=== PATIENT | female | born 1955 | race Caucasian/White ===

== ENCOUNTER 2020-12-14 10:16 | Emergency (ER) | payer BC, OTHER ==
[~2020-12-14] VITALS: Ht 172.7 cm; Wt 111.0 kg
[2020-12-14 10:20] VITALS: BP 141/93
[2020-12-14] MEDS ORDERED: KETOROLAC 30 MG/ML VIAL IM STA (10:25)
--- NOTE | 2020-12-14 10:25 | ED Lower Extremity ---
General Chief Complaint: Lower Extremity Stated Complaint: LT HIP/KNEE PAIN History of Present Illness Date Seen by Provider: December 14, 2020 Time Seen by Provider: 10:22 Initial Comments 65-year-old female presents with left knee pain. Patient reports that she has had "problems with her knee in the past. She was out walking laps today when she felt a pop in her left knee. That she has pain in the joint line of the left lateral aspect of the knee. She is able to bear weight but it hurts. Patient reports that since that happened she has had a little bit of pain now in her hip. Allergies and Home Medications Allergies Coded Allergies: No Known Drug Allergies (Unverified , 12/14/20) Patient Home Medication List Home Medication List Reviewed: Yes Review of Systems Constitutional: No chills, No fever EENTM: no symptoms reported Respiratory: no symptoms reported Cardiovascular: no symptoms reported Gastrointestinal: no symptoms reported Genitourinary: no symptoms reported Musculoskeletal: see HPI Skin: no symptoms reported Psychiatric/Neurological: No Symptoms Reported Past Fmuvyhs-Wtyuid-Gnhidk Hx Past Med/Social Hx: Reviewed Nursing Past Med/Soc Hx Physical Exam Vital Signs Capillary Refill : Height, Weight, BMI Height: '" Weight: lbs. oz. kg; BMI Method: General Appearance: no apparent distress HEENT: TMs normal Neck: full range of motion, supple Cardiovascular: normal peripheral pulses, regular rate, rhythm Respiratory: lungs clear, normal breath sounds Gastrointestinal: non tender, soft Hips: bilateral hip normal range of motion, bilateral hip no evidence of injury Legs: bilateral leg non-tender Knees: bilateral knee normal range of motion; left knee other (Mild left lateral joint line tenderness, negative anterior posterior drawer test, no noticeable ligament laxity.) Ankles: bilateral ankle non-tender Feet: bilateral foot non-tender Progress/Results/Core Measures Results/Orders My Orders Orders - KATE REYES DO Knee 3 View Left (12/14/20 10:25) Ketorolac Injection (Toradol Injection) (12/14/20 10:25) Progress Progress Note : Progress Note Patient's exam consistent with possible lateral meniscus injury. I discussed the with patient to follow-up with her orthopedic surgeon for further evaluation with possible MRI versus early physical therapy. Patient should use ice, Tylenol ibuprofen as needed for pain. Topical lidocaine. Patient stable at discharge Departure Impression Primary Impression: Left lateral knee pain Additional Impression: Osteoarthritis Qualified Codes: M17.12 - Unilateral primary osteoarthritis, left knee Disposition: 01 HOME, SELF-CARE Condition: Stable Departure-Patient Inst. Referrals: ZOLTAN BARRIGA MD (PCP/Family) Primary Care Physician Patient Instructions: Knee Pain (DC), Ligament Injuries in the Knee (DC), Meniscus Tear ED, Osteoarthritis Add. Discharge Instructions: Follow-up with your orthopedic surgeon for further evaluation Ice to affected area x24 hours and warm moist heat 4% topical lidocaine with menthol to affected area Tylenol or ibuprofen 3 times daily as needed for pain Leon wrap to left knee All discharge instructions reviewed with patient and/or family. Voiced understanding. KATE REYES DO December 14, 2020 10:25
--- NOTE | 2020-12-14 10:44 | Diagnostic Imaging Report ---
Indication: Left knee pain. Time of exam: 10:34 AM 3 views of the left knee were obtained. There is medial compartmental degenerative change with joint space narrowing and marginal spurring. There is some marginal spurring along the lateral tibial plateau as well. Mild to moderate patellofemoral degenerative changes noted. There is no fracture dislocation. There is a small joint effusion. Impression: Small effusion and degenerative changes. No acute bony abnormality is detected. Dictated by: Dictated on workstation # [id number]
== END 2020-12-14 10:51 | disposition home or self-care (01) ==
LOC: ER FS 10:18
DX: M17.12 Unilateral primary osteoarthritis, left knee (principal)
CPT/HCPCS: 73562; 96372